=== PATIENT | male | born 1960 | race Caucasian/White ===

== ENCOUNTER 2018-03-07 09:35 | Day surgery (SDC) | payer OTHER, SELFPAY ==
[2018-02-21 12:46] VITALS: BMI 32.5
[2018-03-07] VITALS (9 sets, daily range): BP systolic 106–152; BP diastolic 72–105; PULSE 16–64; RESP 14–16; TEMP 36.4–36.6; O2SAT 96–100; BMI 23.0
--- NOTE | 2018-03-07 10:45 | GASB_PTH ---
PATIENT: TIMOTHY PANDA LOC: [facility] U#:[id number] AGE/SX: 58/M ROOM: RE03/07/[address]: Dr. Sarath Davies MD : 1960 BED: DIS: 03/07/2018 SPEC #: [id number] RECD: 03/07/18 11:42 STATUS: DONNA SKY #: [id number] RAYMOND: 03/07/18 10:[address]: Sarath Davies DEPT: SURGICAL PATHOLOGY RECD BY: Mika Medina ENTERED: 03/07/18 12:05 SP TYPE: Gastric Bx OTHR DR: Dr. Tani Hernandez DO Tissues: A - Gastric mucous membrane B - Esophageal mucous membrane Procedures: Special Stain Group I Surgery Specimen Level IV GMS Stain (control) HEADER OPERATION: EGD (MOD) PRE-OP DIAGNOSIS: Intractable GERD TISSUE SUBMITTED: A - Biopsy gastric antrum, H. pylori and path, B - Biopsy distal esophagus MICROSCOPIC DIAGNOSIS A. Gastric antrum, biopsy: Mild gastritis. See microscopic description and comment. B. Distal esophagus, biopsy: Fragments of squamous mucosa with extensive ulceration, associated acute inflammation, fibrinopurulent exudation and superficial colonization with organisms consistent with bacteria. Special stain for fungi is negative for organisms; matched control is appropriate. SJ:rg 03/08/18 COMMENT A. The results of immunohistochemistry for Helicobacter pylori will be reported separately ([id number]). MICROSCOPIC DESCRIPTION Slides are reviewed. A. The specimen shows fragments of gastric mucosa with chronic inflammatory cell infiltrates in the lamina propria consisting of lymphocytes and plasma cells, consistent with mild chronic gastritis. GROSS DESCRIPTION A. Received in fixative is one container labeled with the patient's name and designated biopsy gastric antrum. The specimen consists of one irregular fragment of light hui soft tissue that measures 0.7 x 0.3 x 0.1 cm. The specimen is totally submitted in one cassette. B - Received in fixative is one container labeled with the patient's name and designated biopsy distal esophagus. The specimen consists of multiple irregular fragments of light hui soft tissue that in aggregate measure 1 x 0.7 x 0.1 cm. The specimen is totally submitted in one cassette. / RAHUL:geovani 03/07/18 TC: CPT: 24423 x2, 59722
--- NOTE | 2018-03-07 10:45 | IMM_PTH ---
PATIENT: TIMOTHY PANDA LOC: [facility] U#:[id number] AGE/SX: 58/M ROOM: RE03/07/[address]: Dr. Sarath Davies MD : 1960 BED: DIS: 03/07/2018 SPEC #: [id number] RECD: 03/07/18 13:08 STATUS: DONNA REVenkat #: [id number] RAYMOND: 03/07/18 10:[address]: Sarath Davies DEPT: IMMUNOHISTOCHEMISTRY RECD BY: Meagan Zurita ENTERED: 03/07/18 13:09 SP TYPE: IMMUNO OTHR DR: Dr. Tani Hernandez DO Tissues: A - Stomach, NOS Procedures: H Pylori (initial) PHYSICIAN & INSTITUTION [place] [address] SPECIMEN INFORMATION: Tissue Source: A - Gastric antrum Clinical Info: GERD Specimen Number: [id number] CPT code: 98331 METHODOLOGY: Deparaffinized sections of prefer/formalin-fixed tissue or PAP/DQ stained slides are incubated with monoclonal/polyclonal antibodies/oligonucleotide probes. Localization is made via biotin free immunoperoxidase method. Appropriate controls are performed and reacted as expected. Results on target cell population are indicated in the following table: RESULTS: ANTIBODY / CLONE RESULT Block A H Pylori (polyclonal) negative These tests were developed and their performance characteristics determined by [facility]. They may not have been cleared or approved by the U.S. Food and Drug Administration. The FDA has determined that such clearance or approval is not necessary. INTERPRETATION: A. Gastric antrum, biopsy: Negative for Helicobacter pylori organisms. SJ:geovani 03/08/18
--- NOTE | 2018-03-07 11:26 | OP.ENDO_ITS ---
Patient Name: Siddharth Alonso Procedure Date: 03/07/2018 11:05 AM Date of : 1960 Age: 58 Procedure: Upper GI endoscopy Indications: Suspected gastro-esophageal reflux disease Providers: Sarath Davies MD Referring MD: Sarath Davies MD Medicines: Midazolam 4.5 mg IV, Meperidine 75 mg IV Complications: No immediate complications. Procedure: Pre-Anesthesia Assessment: - Prior to the procedure, a History and Physical was performed, and patient medications and allergies were reviewed. The patient's tolerance of previous anesthesia was also reviewed. The risks and benefits of the procedure and the sedation options and risks were discussed with the patient. All questions were answered, and informed consent was obtained. Prior Anticoagulants: The patient has taken no previous anticoagulant or antiplatelet agents. ASA Grade Assessment: II - A patient with mild systemic disease. After reviewing the risks and benefits, the patient was deemed in satisfactory condition to undergo the procedure. After obtaining informed consent, the endoscope was passed under direct vision. Throughout the procedure, the patient's blood pressure, pulse, and oxygen saturations were monitored continuously. The gastroscope was introduced through the mouth, and advanced to the second part of duodenum. The upper GI endoscopy was accomplished without difficulty. The patient tolerated the procedure well. Moderate Sedation: Moderate (conscious) sedation was personally administered by the endoscopist. The following parameters were monitored: oxygen saturation, heart rate, blood pressure, and response to care. Total physician intraservice time was 15 minutes. Scope In: 11:15:11 AM Scope Out: 11:21:16 AM Total Procedure Duration Time 0 hours 6 minutes 5 seconds Findings: LA Grade B (one or more mucosal breaks greater than 5 mm, not extending between the tops of two mucosal folds) esophagitis with no bleeding was found 39 to 40 cm from the incisors. Biopsies were taken with a cold forceps for histology. A small hiatal hernia was present. Diffuse mildly erythematous mucosa without bleeding was found in the gastric antrum. Biopsies were taken with a cold forceps for histology. The examined duodenum was normal. Impression: - LA Grade B reflux esophagitis. Biopsied. - Small hiatal hernia. - Erythematous mucosa in the antrum. Biopsied. - Normal examined duodenum. Recommendation: - Discharge patient to home. - Resume previous diet. - Continue present medications. - Use Prilosec (omeprazole) 40 mg PO daily. - Telephone my office for pathology results in 1 week. Procedure Code(s): --- Professional --- 27352, Esophagogastroduodenoscopy, flexible, transoral; with biopsy, single or multiple 72024, 59, Moderate sedation services provided by the same physician or other qualified health gericare aide teacher performing the diagnostic or therapeutic service that the sedation supports, requiring the presence of an independent trained observer to assist in the monitoring of the patient's level of consciousness and physiological status; initial 15 minutes of intraservice time, patient age 5 years or older Diagnosis Code(s): --- Professional --- K21.0, Gastro-esophageal reflux disease with esophagitis K44.9, Diaphragmatic hernia without obstruction or gangrene K31.89, Other diseases of stomach and duodenum CPT copyright 2017 [employer]. All rights reserved. The codes documented in this report are preliminary and upon vc++ developer review may be revised to meet current compliance requirements. Sarath Davies MD 03/07/2018 11:26:14 AM This report has been signed electronically. Number of Addenda: 0 Note Initiated On: 03/07/2018 11:05 AM
== END 2018-03-07 12:15 | disposition home or self-care (01) ==
LOC: EN 09:46 → AC 09:48
PROVIDERS: Family Provider Family Medicine; PCP Family Medicine; Referring Provider Surgery; Visit Provider Surgery
PROC: (CPT 43239; principal; 2018-03-07 10:40)
DX: K21.0 Gastro-esophageal reflux disease with esophagitis (principal); K31.89 Other diseases of stomach and duodenum; K44.9 Diaphragmatic hernia without obstruction or gangrene
CPT/HCPCS: 43239; 88305; 88312; 88342; 99152; J7120

== ENCOUNTER 2018-07-04 07:21 | Day surgery (SDC) | payer OTHER, SELFPAY ==
[2018-03-07 10:06] VITALS: BMI 23.0
--- NOTE | 2018-07-04 06:04 | PCM.HP.STD ---
Problem List (1) GERD (gastroesophageal reflux disease) Status: Acute Qualifiers: History of Present Illness Date of Admission: 07/04/18 The patient is a 58 year old M who I saw in the office on May 29, 2018. At that point he had surgical follow-up for a esophagogastroduodenoscopy which which demonstrated severe reflux esophagitis. He had GERD symptoms for multiple years. He is to be on omeprazole 40 mg daily for 3 months. Prior to ceasing the medication I recommended a repeat upper endoscopy because of the degree of ulceration that he had previously. Wanted to proceed with careful inspection of the EG junction for findings of reflux or Pandya's or Schatzki's ring. Then hopefully would be able to convert to an H2 pamela. I have also suggested consideration for esophageal manometry and possible surgical reflux procedure. The patient states that he has been on his medication but has breakthrough symptoms if he does not take it. Spicy foods aggravate the problem. Most recent colonoscopy was March 2014 and he had tubular adenoma. He had had previous prolonged sedation with the IV sedation uterus laparoscope so monitored anesthesia care will be utilized. He does get motion sickness so I thought that possibly a good surgical procedure for him might be a Toupet procedure rather than a 360 degree wrap Past Medical History Past Medical History (Chronic Problems): Chronic Problems (Last Updated 05/29/18 @ 15:05 by Anju Moy) Hyperlipidemia (Chronic) Medical History: Medical History (Last Updated 05/29/18 @ 15:05 by Anju Moy) GERD (gastroesophageal reflux disease) (Acute) K21.9 Pneumonia (Acute) J18.9 Hypertension (Acute) I10 Acute respiratory failure (Acute) J96.00 Hyperlipidemia (Chronic) E78.5 Ventricular bigeminy (Acute) I49.9 Acute electrocardiogram changes (Acute) R94.31 Shock (Acute) R57.9 Allergies codeine Adverse Reaction (Verified 06/22/18 14:42) Vomiting epinephrine Adverse Reaction (Verified 06/22/18 14:42) Other ekg changes & hypo/hypertension during surgery Home Medications: Ambulatory Orders Medication Instructions Recorded Atenolol [Tenormin (beta pamela)] 50 mg PO QHS 03/18/14 Omeprazole 40 mg PO DAILY #90 gloria. 03/07/18 Surgical History: Surgical History (Last Updated 05/29/18 @ 15:05 by Anju Moy) History of esophagogastroduodenoscopy (EGD) Z98.890 History of nasal septoplasty Z98.890 Surgical History: - - History of a colonoscopy and history of prior nasal turbinate surgery. Psychiatric History: No pertinent psych hx Smoking Status: Never smoker - *Family History Maternal Family History: Family History (Last Reviewed 05/29/18 @ 15:05 by Anju Moy) Mother Hypertension Cancer Father Cancer History Items: - Review of Systems Constitutional: Denies: Anorexia HEENT: Reports: Dysphasia Cardiovascular: Denies: Chest Pain Respiratory: Denies: Cough Gastrointestinal: Denies: Abdominal Pain Endocrine: Denies: Change in Body Habitus VTE Information - Inpt Only VTE Present on Admission: No - Physical Exam General: Alert, Oriented x3, Cooperative, No apparent distress HEENT: Atraumatic Oral: Moist Mucosa Lungs: Clear to auscultation Cardiovascular: Regular rate, Regular Rhythm Abdomen: Bowel Sounds Present, Soft, Non Tender Extremities: No clubbing Psych/Mental Status: Normal Affect Body Mass Index (BMI) 23.0 Assessment/Plan All Active Problems (Last Updated 05/29/18 @ 15:05 by Anju Moy) GERD (gastroesophageal reflux disease) (Acute) Pneumonia (Acute) Hypertension (Acute) Acute respiratory failure (Acute) Ventricular bigeminy (Acute) Acute electrocardiogram changes (Acute) Shock (Acute) Esophagogastroduodenoscopy with very careful inspection for reflux or Pandya's or Schatzki ring. Colonoscopy with possible biopsy or polypectomy as indicated. The patient is aware of technique, benefits, risks and alternatives. He has had an opportunity to ask and have questions answered. We will proceed as noted. Sarath Davies M.D., F.A.C.S.
[2018-07-04 07:48] VITALS: BP 132/76; PULSE 70; RESP 16; TEMP 36.8; O2SAT 100; BMI 23.5
--- NOTE | 2018-07-04 08:30 | IMM_PTH ---
PATIENT: TIMOTHY PANDA LOC: [facility] U#:[id number] AGE/SX: 58/M ROOM: RE07/04/[address]: Dr. Sarath Davies MD : 1960 BED: DIS: 07/04/2018 SPEC #: [id number] RECD: 07/04/18 11:48 STATUS: DONNA SKY #: [id number] RAYMOND: 07/04/18 08:[address]: Sarath Davies DEPT: IMMUNOHISTOCHEMISTRY RECD BY: Meagan Zurita ENTERED: 07/04/18 11:48 SP TYPE: IMMUNO OTHR DR: Dr. Tani Hernandez, Tissues: A - Stomach, NOS Procedures: H Pylori (initial) PHYSICIAN & INSTITUTION [place] [address] SPECIMEN INFORMATION: Tissue Source: A - Antral biopsy Clinical Info: GERD, history of polyps Specimen Number: [id number] CPT code: 37372 METHODOLOGY: Deparaffinized sections of prefer/formalin-fixed tissue or PAP/DQ stained slides are incubated with monoclonal/polyclonal antibodies/oligonucleotide probes. Localization is made via biotin free immunoperoxidase method. Appropriate controls are performed and reacted as expected. Results on target cell population are indicated in the following table: RESULTS: ANTIBODY / CLONE RESULT Block A H Pylori (polyclonal) negative These tests were developed and their performance characteristics determined by [facility]. They may not have been cleared or approved by the U.S. Food and Drug Administration. The FDA has determined that such clearance or approval is not necessary. INTERPRETATION: A. Antral biopsy: Negative for Helicobacter pylori organisms. AM:geovani 07/06/18
--- NOTE | 2018-07-04 08:30 | EGD_PTH ---
PATIENT: TIMOTHY PANDA LOC: [facility] U#:[id number] AGE/SX: 58/M ROOM: RE07/04/[address]: Dr. Sarath Davies MD : 1960 BED: DIS: 07/04/2018 SPEC #: [id number] RECD: 07/04/18 11:04 STATUS: DONNA SKY #: [id number] RAYMOND: 07/04/18 08:[address]: Sarath Davies DEPT: SURGICAL PATHOLOGY RECD BY: Anthony Song ENTERED: 07/04/18 11:35 SP TYPE: EGD BIOPSY OTHR DR: Dr. Tani Hernandez DO Tissues: A - Gastric mucous membrane B - Gastric mucous membrane C - Transverse colon Procedures: Special Stain Group II Surgery Specimen Level IV Alcian Blue/PAS (control) HEADER OPERATION: Colonoscopy, EGD ([employer]) PRE-OP DIAGNOSIS: GERD, history of polyps TISSUE SUBMITTED: A - Antral biopsy for H. pylori and pathology, B - GE junction/distal esophageal biopsies, C - Mid transverse polyps MICROSCOPIC DIAGNOSIS A. Gastric antrum, biopsy: Mild chronic gastritis. See comment. B. Gastroesophageal junction, biopsy: Mild chronic inflammation. No evidence of intestinal metaplasia. Focal changes of reflux. See comment. C. Mid transverse colon polyps, biopsy: Fragments of tubular adenoma. AM:geovani 07/05/18 COMMENT A. The results of immunohistochemistry for Helicobacter pylori will be reported separately ([id number]). B. Alcian blue/PAS stain with matched control supports the above diagnosis. MICROSCOPIC DESCRIPTION Slides are reviewed. GROSS DESCRIPTION A - Received in fixative is one container labeled with the patient's name and designated antral biopsy. The specimen consists of one irregular fragment of light hui soft tissue that measures 0.5 x 0.3 x 0.1 cm. The specimen is totally submitted in one cassette. B - Received in fixative is one container labeled with the patient's name and designated GE junction/ distal esophageal biopsy. The specimen consists of multiple irregular fragments of light hui soft tissue that in aggregate measure 2.5 x 0.5 x 0.1 cm. The specimen is totally submitted in one cassette. C - Received in fixative is one container labeled with the patient's name and designated mid transverse polyps. The specimen consists of a piece of polyp measuring 0.7 x 0.5 x 0.3 cm. Also present in the container are multiple fragments of hui soft tissue measuring in aggregate 0.5 x 0.5 x 0.1 cm. The specimen is totally submitted in one cassette. / RAHUL:geovani 07/04/18 TC:3 CPT: 19940 x3, 59375
[2018-07-04 09:10] VITALS: BP 101/66; BP 132/76; PULSE 60; RESP 15; TEMP 36.2; O2SAT 100
--- NOTE | 2018-07-04 09:11 | OP.ENDO_ITS ---
07/04/2018 Tani Hernandez [address] [place] [address] Re : Upper GI endoscopy procedure for Siddharth Alonso Dear Dr. Hernandez This procedure was performed on Wednesday, July 04, 2018. 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 Biopsied. - Small hiatal hernia. - Z-line variable, 36 cm from the incisors. - Normal stomach. Biopsied. - Normal examined duodenum. Recommendations : - Discharge patient to home. - Resume previous diet. - Continue present medications. - Telephone my office for pathology results in 1 week. Consider manometry and surgical treatment for reflux My findings are described in the full procedure note, which is enclosed. If I can be of further assistance, please feel free to contact me at Doctor phone number(s): Work: . Sincerely, Sarath Davies MD 07/04/2018 9:11:26 AM This report has been signed electronically.
[2018-07-04 09:15] VITALS: BP 105/62; BP 132/76; PULSE 61; RESP 16; O2SAT 100
--- NOTE | 2018-07-04 09:16 | OP.ENDO_ITS ---
07/04/2018 Tani Hernandez [address] [place] [address] Re : Colonoscopy procedure for Siddharth Celeste Dear Dr. Hernandez This procedure was performed on Wednesday, July 04, 2018. My impressions and recommendations are as follows: Impressions : - Non-thrombosed external hemorrhoids, non-thrombosed internal hemorrhoids and internal hemorrhoids that prolapse with straining, but spontaneously regress to the resting position (Grade II) found on digital rectal exam. - One 10 mm polyp in the mid transverse colon, removed using injection-lift and a hot snare. Resected and retrieved. - One 4 mm polyp in the mid transverse colon, removed with a cold biopsy forceps. Resected and retrieved. - Diverticulosis in the sigmoid colon. Recommendations : - Discharge patient to home. - Resume previous diet. - Continue present medications. - Telephone my office for pathology results in 1 week. - Repeat colonoscopy in 5 years for surveillance. My findings are described in the full procedure note, which is enclosed. If I can be of further assistance, please feel free to contact me at Doctor phone number(s): Work: . Sincerely, Sarath Davies MD 07/04/2018 9:15:38 AM This report has been signed electronically.
[2018-07-04 09:20] VITALS: BP 124/75; BP 132/76; PULSE 62; RESP 16; O2SAT 100
[2018-07-04 09:25] VITALS: BP 117/69; BP 132/76; PULSE 62; RESP 16; TEMP 36.9; O2SAT 97
[2018-07-04 09:40] VITALS: BP 132/76
== END 2018-07-04 09:41 | disposition home or self-care (01) ==
LOC: EN 07:22 → AC 07:25
PROVIDERS: Family Provider Family Medicine; PCP Family Medicine; Referring Provider Surgery; Visit Provider Surgery
PROC: 0DJD8ZZ Inspection of Lower Intestinal Tract, Via Natural or Artificial Opening Endoscopic (ICD-10-PCS; CPT 45378; principal; 2018-07-04 08:25)
DX: K21.0 Gastro-esophageal reflux disease with esophagitis (principal); K29.50 Unspecified chronic gastritis without bleeding; D12.3 Benign neoplasm of transverse colon; K22.8 Other specified diseases of esophagus; K44.9 Diaphragmatic hernia without obstruction or gangrene; K64.1 Second degree hemorrhoids; K64.4 Residual hemorrhoidal skin tags; K57.30 Diverticulosis of large intestine without perforation or abscess without bleeding; I10 Essential (primary) hypertension; E78.5 Hyperlipidemia, unspecified; I25.2 Old myocardial infarction; Z79.899 Other long term (current) drug therapy; Z86.010 Personal history of colon polyps
CPT/HCPCS: 43239; 45380; 45381; 45385; 88305; 88313; 88342; J7120

== ENCOUNTER 2021-03-13 17:22 | Outpatient (CLI) | payer OTHER, SELFPAY ==
[2021-03-13] MEDS: Acetaminophen 325 MG Tablet 650 MG PO (17:28)
[2021-03-13 17:31] VITALS: BP 129/72; PULSE 72; RESP 18; TEMP 38.8; O2SAT 99; BMI 23.1
[2021-03-13] MEDS: 0.9% Saline Lock 10 ML Syringe IV (17:37)
[2021-03-13 18:14] VITALS: BP 109/56; PULSE 63; RESP 16; TEMP 37.3; O2SAT 94
[2021-03-13 19:12] VITALS: BP 112/72; PULSE 64; RESP 18; TEMP 37.7; O2SAT 96
== END 2021-03-13 19:22 | disposition home or self-care (01) ==
LOC: MS3OUT 17:22 → MS3 17:23
PROVIDERS: PCP Student in an Organized Health Care Education/Training Program; Referring Provider Nurse Practitioner Adult Health; Visit Provider Nurse Practitioner Adult Health
DX: U07.1 COVID-19 (principal)
CPT/HCPCS: J7050; M0245; Q0245; A4216

== ENCOUNTER 2022-08-21 14:55 | Emergency (ER) | payer OTHER, SELFPAY ==
[2022-08-21 14:56] VITALS: BP 161/79; PULSE 72; RESP 18; TEMP 36.4; O2SAT 98; BMI 23.6
--- NOTE | 2022-08-21 15:11 | EX.ED.DYSGE1 ---
HPI History of Present Illness Chief Complaint: Edema Informant: patient and spouse/S.O. Onset/Context/Timing Onset: Days Context: Gradual Onset Narrative Narrative: Patient presents secondary to right leg pain. He states he had a charley horse-like sensation in his right calf and behind his right knee for the last 4 days. He started noticing some slight swelling. Patient denies history of DVT or PE. He did have recent skin surgery on his scalp. He had no fever or chills. He denies chest pain or shortness of breath. [facility] Medical History (Updated 08/21/22 @ 16:[address] Krystle Dutta MD) Acute electrocardiogram changes Acute respiratory failure GERD (gastroesophageal reflux disease) Hyperlipidemia Hypertension Pneumonia Shock Ventricular bigeminy Home Medications atenolol 50 mg tablet 50 mg PO QHS 03/18/14 [History Last Taken 07/04/18 07:00] omeprazole 40 mg capsule,delayed release 20 mg PO DAILY 09/21/19 [History Last Taken Unknown] Allergy/AdvReac Type Severity Reaction Status Date / Time codeine AdvReac Vomiting Verified 03/12/21 10:44 epinephrine AdvReac Other Verified 03/12/21 10:44 Family History Mother Hypertension Cancer lung Father Cancer mantle cell lymphoma Surgical History History of esophagogastroduodenoscopy (EGD) History of nasal septoplasty Social History Smoking Status: Never smoker alcohol intake: never substance use type: does not use ROS ROS ED Constitutional Constitutional ED: Denies chills or fever(s) Eyes Eyes: Denies change in vision or discharge from eye(s) ENT ENT ED: Denies discharge from eye(s), rhinorrhea or sore throat Cardiovascular Cardiovascular: Denies chest pain or palpitations Respiratory/Chest Respiratory/Chest: Denies cough or dyspnea Gastrointestinal Gastrointestinal: Denies abdominal pain, nausea or vomiting Genitourinary Genitourinary ED: Denies dysuria Musculoskeletal Musculoskeletal: Reports extremity pain; Denies back pain Integumentary Reports other Details: Postop scalp lesion ; Denies Abrasions or rash Neurologic Neurologic: Denies headache(s) or weakness Psychiatric Psychiatric: Denies anxiety or depression Allergic/Immunologic Allergic/Immunologic ED: Denies lip swelling or urticaria EXAM Physical Exam Const Vital Signs: 08/21/22 14:56 08/21/22 15:16 08/21/22 14:56 Temperature 97.6 F L 97.6 F L Temperature Source Temporal Temporal Pulse Rate 72 72 Respiratory Rate 18 18 Respiratory Effort Normal Non-Labored Respiratory Pattern Normal Blood Pressure 161/79 H 161/79 H Blood Pressure Mean 106 106 Pulse Ox 98 98 Oxygen Delivery Method Room Air Room Air Positive well nourished and well developed General Appearance ED: well developed HEENT Reports moist mucous membranes HEENT Narrative: Parietal scalp incision with cong intact. No surrounding erythema or drainage. No sign of infection at this time. Eyes EOMs intact bilaterally Chest Wall inspection of chest normal and palpation of chest normal Resp normal respiratory effort and clear to auscultation bilaterally Cardio regular rate and regular rhythm GI normal to inspection, nondistended, normoactive bowel sounds Extremity Extremity Narrative: Minimal edema noted to the right lower extremity, however right calf is tense when compared to the left. Strong distal pulses. No palpable cords. No overlying skin changes. Strong distal pulses. Full range of motion at all joints. Neuro oriented x3 and no sensory deficits noted Motor Exam: strength 5/5 throughout Psych mental status grossly normal MDM MDM MDM Narrative Medical decision making narrative: I did explain to the patient I do not have venous ultrasound available at this time as he presents on a Tuesday afternoon. We agreed to test the D-dimer which did return elevated at 2.93. In light of this patient be given an injection of Lovenox. He will return tomorrow for a ultrasound of his leg to evaluate for DVT. Patient and are comfortable with this plan. Lab Data Labs: Laboratory Results - last 24 hr 08/21/22 15:30 D-Dimer Quant (PE/DVT) 2.93 H* Discharge Plan Triage Chief Complaint: Edema ED Provider: Krystle Dutta Dx/Rx/DC Orders Clinical Impression: Leg edema, right Instructions: ED Peripheral Edema, Unilateral Prescriptions: No Action omeprazole 40 mg capsule,delayed release(DR/EC) 20 mg PO DAILY atenolol 50 MG tablet 50 mg PO QHS Other Ambulatory Orders: Venous Duplex US, Unilateral (Stat) Facility: [facility] - Location: [facility] Ordered By: Dr. Krystle Dutta Primary Care Provider: Jarrod Sifuentes Referrals: Jarrod Sifuentes DO [Primary Care Provider] - 3-5 Days if not improving Disposition Disposition: Home, Self Care
[2022-08-21 16:05] LABS: D-Dimer Quantitative (DVT/PE) 2.93 FEU/ug/m (0.27-0.49)
[2022-08-21] MEDS: Enoxaparin 80 MG/0.8 ML Syringe SC (16:17)
== END 2022-08-21 16:28 | disposition home or self-care (01) ==
PROVIDERS: Emergency Provider Emergency Medicine; PCP Student in an Organized Health Care Education/Training Program; Visit Provider Emergency Medicine
DX: R60.0 Localized edema (principal); E78.5 Hyperlipidemia, unspecified; I10 Essential (primary) hypertension; K21.9 Gastro-esophageal reflux disease without esophagitis
CPT/HCPCS: 85379; 96372; 99282

== ENCOUNTER 2022-08-22 12:03 | Emergency (ER) | payer OTHER, SELFPAY ==
[2022-08-22 12:04] VITALS: BP 136/73; PULSE 59; RESP 16; TEMP 36.1; O2SAT 99; BMI 23.4
--- NOTE | 2022-08-22 12:19 | EDS_ITS ---
HPI History of Present Illness Chief Complaint: Lower Extremity Injury Informant: patient Narrative Narrative: Patient with about 6 days of spontaneous onset pain in the right popliteal fossa down into the calf and some edema distal to that. Denies any PE symptoms. He was seen here yesterday for this but presented when venous duplex ultrasound was not available so we had that as an outpatient this morning, and was sent here to the emergency department around noon due to the ultrasound being positive for DVT basically from the popliteal vein down. He denies any new symptoms or changes since yesterday. PFSH [facility] Medical History (Updated 08/22/22 @ 12:[address] Naveed Mclain MD) Acute electrocardiogram changes Acute respiratory failure GERD (gastroesophageal reflux disease) Hyperlipidemia Hypertension Melanoma Pneumonia Shock Ventricular bigeminy Home Medications atenolol 50 mg tablet 50 mg PO QHS 03/18/14 [History Last Taken 07/04/18 07:00] omeprazole 40 mg capsule,delayed release 20 mg PO DAILY 09/21/19 [History Last Taken Unknown] apixaban 5 mg (74 tabs) tablets in a dose pack (Eliquis DVT-PE Treat 30D Start) 5 mg PO BID #74 tabs 08/22/22 [Rx Last Taken Unknown] Allergy/AdvReac Type Severity Reaction Status Date / Time codeine AdvReac Vomiting Verified 03/12/21 10:44 epinephrine AdvReac Other Verified 03/12/21 10:44 Family History Mother Hypertension Cancer lung Father Cancer mantle cell lymphoma Surgical History (Updated 08/22/22 @ 12:[address] Naveed Mclain MD) History of esophagogastroduodenoscopy (EGD) History of melanoma excision History of nasal septoplasty Social History Smoking Status: Never smoker alcohol intake: never substance use type: does not use ROS ROS ED Constitutional Constitutional ED: Denies chills or fever(s) Cardiovascular Cardiovascular: Reports leg edema; Denies chest pain, palpitations, racing heartbeat or syncope Respiratory/Chest Respiratory/Chest: Denies dyspnea or dyspnea on exertion Musculoskeletal Musculoskeletal: Reports extremity pain; Denies neck pain Integumentary Denies Abrasions, rash or wounds Neurologic Neurologic: Denies paresthesias or weakness EXAM Physical Exam Const Vital Signs: 08/22/22 12:04 Temperature 97 F L Temperature Source Temporal Pulse Rate 59 L Respiratory Rate 16 Blood Pressure 136/73 H Blood Pressure Mean 94 Pulse Ox 99 Oxygen Delivery Method Room Air Positive well nourished and well developed General Appearance ED: well developed and NAD Neck full ROM and supple Back/Spine normal ROM and normal to inspection Extremity Extremity Narrative: Mild edema pitting right lower extremity, mild calf tenderness, no palpable cords or skin color abnormalities, or abnormal pulse. Neuro oriented x3, no focal motor deficits and no sensory deficits noted Sensorium / Orientation: alert Psych mental status grossly normal and thought process normal Skin no wounds Rashes: no rashes MDM MDM MDM Narrative Medical decision making narrative: Patient had 1 mg/kg or little more of Lovenox yesterday, I reviewed those records to see the dose. Since it is noon I am given him a 24-hour dose of Lovenox 1.5 mg/kg, and prescribed him Eliquis that then he can start in the morning tomorrow. Close outpatient follow-up with his doctor. He has had no immobilization or long travel recently. He did recently have a melanoma removed from the top of his scalp, but it was an outpatient surgery. He said it was confirmed that it was melanoma and he does not need chemotherapy and has not been diagnosed with any metastatic disease. That really is his risk factor for developing thromboembolic disease which I discussed with him. Discharge Plan Triage Chief Complaint: Lower Extremity Injury ED Provider: Naveed Mclain Dx/Rx/DC Orders Clinical Impression: Deep vein thrombosis (DVT) of popliteal vein of right lower extremity Instructions: DVT Dc Prescriptions: New Eliquis DVT-PE Treat 30D Start 5 mg (74 tabs) tablets,dose pack 5 mg PO BID Qty: 74 0RF Rx Instructions: use as directed No Action omeprazole 40 mg capsule,delayed release(DR/EC) 20 mg PO DAILY atenolol 50 MG tablet 50 mg PO QHS Primary Care Provider: Jarrod Sifuentes Referrals: Jarrod Sifuentes DO [Primary Care Provider] - 1-2 Weeks Activity Restrictions/Additional Instructions: The injection of blood thinner you received in the emergency department will last approximately 24 hours. Start the prescription blood thinner pills tomorrow morning, 08/23/2022. Disposition Disposition: Home, Self Care
[2022-08-22] MEDS: Enoxaparin 120 MG/0.8 ML Syringe 115 MG SC (12:32)
== END 2022-08-22 12:51 | disposition home or self-care (01) ==
PROVIDERS: Emergency Provider Emergency Medicine; PCP Student in an Organized Health Care Education/Training Program; Visit Provider Emergency Medicine
DX: I82.431 Acute embolism and thrombosis of right popliteal vein (principal); E78.5 Hyperlipidemia, unspecified; I10 Essential (primary) hypertension; K21.9 Gastro-esophageal reflux disease without esophagitis; Z85.820 Personal history of malignant melanoma of skin
CPT/HCPCS: 96372; 99282

== ENCOUNTER → 2022-08-22 | Outpatient (CLI) | payer OTHER, SELFPAY ==
--- NOTE | 2022-08-22 11:27 | VDLE_ITS ---
Reason For Study: Swelling RLE RIGHT LEFT GSV is normal. CFV is compressible, spontaneous, phasic, CFV is compressible, spontaneous, phasic, competent, and demonstrates normal competent and demonstrates normal augmentation. augmentation. FV is compressible, spontaneous, phasic, competent and demonstrates normal augmentation. Rt PopV, Rt T/P Trunk, Rt PTV, Rt PeroV, and Rt SoleusV are DILATED and NON COMPRESSIBLE consistent with acute DVT. Procedure This is a venous duplex using B-mode, color flow and spectral Doppler. Exam performed in department. Patient sent to ED for treatment. A preliminary report was called and/or faxed to ED. VL/Venous Duplex US, Unilateral Interpretation Summary Acute deep vein thrombosis is noted in the right popliteal vein, tibioperoneal trunk vein, posterior tibial vein, peroneal vein, soleus vein. Ordering Physician: Krystle Dutta Referring Physician: Jarrod Sifuentes Performed By: Gisselle Scott RDCS, RVT
== END | disposition home or self-care (01) ==
LOC: CVS 11:27
PROVIDERS: PCP Student in an Organized Health Care Education/Training Program; Visit Provider Emergency Medicine
DX: M79.89 Other specified soft tissue disorders (principal)
CPT/HCPCS: 93971

== ENCOUNTER 2023-07-08 08:59 | Day surgery (SDC) | payer MEDICARE, SELFPAY ==
--- NOTE | 2023-07-08 | GASB_PTH ---
PATIENT: TIMOTHY PANDA LOC: EN U#:[id number] AGE/SX: 63/M ROOM: RE07/08/[address]: Dr. Sarath Davies MD : 1960 BED: DIS: 07/08/2023 SPEC #: [id number] RECD: 07/08/23 13:36 STATUS: DONNA SKY #: [id number] RAYMOND: 07/08/23 00:[address]: Sarath Davies DEPT: SURGICAL PATHOLOGY RECD BY: Jt Dailey ENTERED: 07/08/23 13:36 SP TYPE: Gastric Bx OTHR DR: Dr. Jarrod Sifuentes DO Tissues: A - Gastric mucous membrane B - Gastric mucous membrane C - Stomach, NOS D - Esophageal mucous membrane E - COLON BIOPSY Procedures: Special Stain Group II Surgery Specimen Level IV Alcian Blue/PAS (control) HEADER OPERATION: Colonoscopy with polypectomy, EGD with biopsy PRE-OP DIAGNOSIS: GERD, History of colon polyps, Polyp TISSUE SUBMITTED: A- Antrum biopsy, B- Antral polyp, C- Greater curvature polyp, D- Distal esophagus, E- Colon polyp proximal transverse hot snare MICROSCOPIC DIAGNOSIS A. Gastric antrum, biopsy: Mild chronic gastritis. B. Gastric antral polyp, biopsy: Hyperplastic gastric mucosa. Mild chronic inflammation. C. Greater curvature polyp, biopsy: Fundic gland polyp. D. Distal esophagus, biopsy: Gastroesophageal junctional mucosa with mild chronic inflammation. Focal changes of reflux. No evidence of goblet cell metaplasia. See comment. E. Proximal transverse colon polyp, biopsy: Fragments of tubular adenoma. AM/mr 07/11/23 COMMENT A. The results of immunohistochemistry for Helicobacter pylori will be reported separately ([id number]). D. Alcian blue/PAS stain with matched control supports the above diagnosis. MICROSCOPIC DESCRIPTION Slides are reviewed. GROSS DESCRIPTION A. Received in fixative is one container labeled with the patient's name and designated Antrum biopsy. The specimen consists of one irregular fragment of light hui soft tissue that measures 0.6 x 0.4 x 0.1 cm. The specimen is totally submitted in one cassette. B. Received in fixative is one container labeled with the patient's name and designated Antral polyp. The specimen consists of one irregular fragment of light hui soft tissue that measures 0.3 x 0.3 x 0.1 cm. The specimen is totally submitted in one cassette. C. Received in fixative is one container labeled with the patient's name and designated Greater curvature polyp. The specimen consists of one irregular fragment of light hui soft tissue that measures 0.4 x 0.3 x 0.1 cm. The specimen is totally submitted in one cassette. D. Received in fixative is one container labeled with the patient's name and designated Distal esophagus. The specimen consists of multiple irregular fragments of light hui soft tissue that in aggregate measure 1.2 x 0.4 x 0.1 cm. The specimen is totally submitted in one cassette. E. Received in fixative is one container labeled with the patient's name and designated Colon polyp proximal transverse hot snare. The specimen consists of multiple irregular fragments of light hui soft tissue that in aggregate measure 1.0 x 0.3 x 0.1 cm. The specimen is totally submitted in one cassette. RAHUL/ 07/08/23 TC:3 CPT:43591j6,52803
[2023-07-08 09:15] VITALS: BP 137/82; PULSE 78; RESP 16; TEMP 36.5; O2SAT 100; BMI 23.1
[2023-07-08] MEDS: Lactated Ringers 1,000 ML 15 ML IV (09:16)
--- NOTE | 2023-07-08 09:54 | HP.PCM_ITS ---
History and Physical Date of Admission: 07/08/23 Visit Reasons: Upper Lower/Scope Chief Complaint: upper lower/scope Director Labor Standards Required: No Is patient in pain?: No Allergies codeine Adverse Reaction (Verified 06/10/23 14:30) Vomitingepinephrine Adverse Reaction (Verified 06/10/23 14:30) Other Medications atenolol 50 mg tablet 50 mg PO QHS 03/18/14 [History Confirmed 03/13/21] omeprazole 40 mg capsule,delayed release 20 mg PO DAILY 09/21/19 [History Confirmed 03/13/21] COUNT INCLUDES THE [facility] Medical History Acute electrocardiogram changes Acute respiratory failure GERD (gastroesophageal reflux disease) Hyperlipidemia Hypertension Melanoma Pneumonia Shock Ventricular bigeminy Surgical History History of esophagogastroduodenoscopy (EGD) History of melanoma excision History of nasal septoplasty Family History Mother Hypertension Cancer lungFather Cancer mantle cell lymphoma Social History Smoking Status: Never smoker alcohol intake: never substance use type: does not use HPI HPI HPI: 63-year-old gentleman is referred Dr. Jarrod Sifuentes for surgical consultation regarding reflux disease and a personal history of colon polyps. A written copy my surgical consult and recommendations will return to him. I have most recently seen this patient on September 21, 2019. He presented at that time because of intractable gastroesophageal reflux disease. At that time he remained on omeprazole therapy and routinely additionally took Tums at night. He has had a previous upper scope on July 04, 2018 showing ulceration of the esophagus. He also had a colonoscopy at that time with 2 polyps removed both tubular adenomas. In an attempt at getting him off of omeprazole he was converted to famotidine therapy 20 mg either daily or twice daily as he needed. I recommended to him that we consider an esophagogastroduodenoscopy with repeat biopsy and Gates probe placement. I discussed with him potential need for esophageal manometry and potential for surgical reflux procedure. He was given our postoperative dietary and activity instruction sheets. He did not schedule further follow-up with me. On June 03, 2023 he completed an open access interview. This was stimulated and that his reflux symptoms have returned despite apparently is being back on omeprazole. He is on fish oil therapy and he was asked to hold this. His complaints are of infrequent heartburn and burping. He has been on omeprazole 20 g orally daily for several years now. He claims that it does completely take care of his reflux problems. He has no heartburn. He does not experience the cough that he used to at night. He is satisfied with that result. He does not require additional medications like an acids. August 10, 2022 had a melanoma removed from his scalp at [facility] in [place] 2 weeks later he developed right lower extremity DVT. He has been subsequently seen by Dr. Pollard for that that appears to be cleared. The patient states that Dr. Pollard performed in the office ultrasound inspection suggesting the DVT had resolved. He was also just seen by Dr. Armando battery charger conveyor line to evaluate him for what was felt to be a blood clotting disorder but the battery charger conveyor line dispel that and took the patient off his his Eliquis therapy last week. The patient also makes comment to me that he gets severe motion sickness and gets nauseated and vomits easily. That is why he does not feel that he is a candidate to pursue surgical reflux surgery. He denies any bright red blood per rectum or melena. No abdominal pain. ROS General General: No weight change, appetite, fatigue, colon cancer, breast cancer or weakness HEENT HEENT: No difficulty swallowing, eye injury, eye surgery, swollen glands or hoarseness Endo Endocrine: No thyroid disease, diabetes mellitus, thyroid cancer, Hair loss, heat intolerance or cold intolerance Skin Skin: No rash or changing moles Musc Musculoskeletal: No back problems, arthritis, rheumatoid arthritis, gout or joint pain Cardio Cardiovascular: No murmur, pacemaker, heart disease, atrial fibrillation, high blood pressure, heart attack, heart stent, palpitations, shortness of breat with exertion or chest pain Psych Psychiatric: No depression, anxiety or hearing voices Resp Respiratory: No shortness of breath, No sleep apnea, No cough, No COPD, No asthma, No emphysema and No wheezing Gastro Gastrointestinal: No abdominal pain, No nausea or vomiting, No diarrhea, No constipation, No blood in stool, Yes acid reflux, No hemorrhoids, No ulcers, No gallbladder problem and No black,tarry stools Nic Hematologic: No blood thinners, No blood disorders, No bleeding, No anemia and Yes blood clots Neuro Neurologic: No weakness Exam Const General: cooperative, healthy appearing, comfortable and no acute distress Nutritional Appearance: average body habitus [facility] Head: normal to inspection Eyes General: appearance normal, both eyes and all related structures Neck Neck: normal visual inspection Chest Chest palpation & inspection: normal inspection of the chest Resp Effort & Inspection: normal respiratory effort Auscultation: clear to auscultation bilaterally Cardio Rate: regular rate Rhythm: regular rhythm GI Inspection: normal to inspection Palpation: soft Musc Cervical Spine: normal cervical lordosis Skin General: no rashes or lesions noted Neuro General: patient alert, patient awake and patient oriented x3 Extrem General: no calf tenderness Psych Appearance: grossly normal Assessment and Plan Assessment and Plan (1) GERD (gastroesophageal reflux disease): Status: Acute Qualifiers: Esophagitis bleeding: without hemorrhage Esophagitis presence: with esophagitis Qualified Code(s): K21.00 - Gastro-esophageal reflux disease with esophagitis, without bleeding (2) Personal history of colonic polyps: Status: Acute Plan: 63-year-old gentleman with known persistent reflux symptoms and biopsy-proven reflux esophagitis. He is proton pump inhibitor dependent and has been so for multiple years. In addition he has a personal history of colon polyps most recent upper and lower endoscopy July 2018. His symptoms have escalated. I propose for him a combined esophagogastroduodenoscopy with possible biopsy and colonoscopy with possible biopsy or polypectomy as indicated. He is aware of the technique, benefit, risk and alternatives. Because of the patient's severe motion sickness and frequent nausea and vomiting he would not appear to be a good candidate for surgical reflux procedure. We will not pursue manometry at this time. He has had an opportunity to ask and have questions answered. I appreciate the ongoing option of assisting with his surgical care. We will schedule and proceed at his discretion. Copy: Dr. Jarrod Davies M.D., F.A.C.S. I have examined the patient and the H&P has been reviewed. There are no clinical changes since date of exam. Sarath Davies M.D., F.A.C.S.
--- NOTE | 2023-07-08 10:15 | IMM_PTH ---
PATIENT: TIMOTHY PANDA LOC: EN U#:[id number] AGE/SX: 63/M ROOM: RE07/08/[address]: Dr. Sarath Davies MD : 1960 BED: DIS: 07/08/2023 SPEC #: [id number] RECD: 07/08/23 13:40 STATUS: DONNA REVenkat #: [id number] RAYMOND: 07/08/23 10:[address]: Sarath Davies DEPT: IMMUNOHISTOCHEMISTRY RECD BY: Yoandy Cruz ENTERED: 07/08/23 13:40 SP TYPE: IMMUNO OTHR DR: Dr. Jarrod Sifuentes DO Tissues: A - Stomach, NOS Procedures: H Pylori (initial) PHYSICIAN & INSTITUTION [place] [id number] SPECIMEN INFORMATION: Tissue Source: A. Antrum biopsy Clinical Info: GERD, History of colon polyps Specimen Number: [id number] CPT code: 29040 METHODOLOGY: Deparaffinized sections of prefer/formalin-fixed tissue or PAP/DQ stained slides are incubated with monoclonal/polyclonal antibodies/oligonucleotide probes. Localization is made via biotin free immunoperoxidase method. Appropriate controls are performed and reacted as expected. Results on target cell population are indicated in the following table: RESULTS: ANTIBODY / CLONE RESULT Block A H Pylori (polyclonal) negative These tests were developed and their performance characteristics determined by [facility]. They may not have been cleared or approved by the U.S. Food and Drug Administration. The FDA has determined that such clearance or approval is not necessary. The above immunohistochemical/dualISH markers are ordered and reviewed by the Pathologist. INTERPRETATION: A. Antrum, biopsy: Negative for Helicobacter pylori organisms. DRAGAN/ 07/11/23
[2023-07-08 12:12] VITALS: BP 137/82; BP 90/44; PULSE 67; RESP 16; TEMP 36.3; O2SAT 100
--- NOTE | 2023-07-08 12:13 | OP.EGD_ITS ---
Patient Name: Siddharth Alonso Procedure Date: 07/08/2023 11:32 AM Date of : 1960 Age: 63 Procedure: Upper GI endoscopy Indications: Esophageal reflux Providers: Sarath Davies MD Medicines: See the Anesthesia note for documentation of the administered medications Complications: No immediate complications. Procedure: Pre-Anesthesia Assessment: - Prior to the procedure, a History and Physical was performed, and patient medications and allergies were reviewed. The patient's tolerance of previous anesthesia was also reviewed. The risks and benefits of the procedure and the sedation options and risks were discussed with the patient. All questions were answered, and informed consent was obtained. Prior Anticoagulants: The patient has taken no anticoagulant or antiplatelet agents. ASA Grade Assessment: II - A patient with mild systemic disease. After reviewing the risks and benefits, the patient was deemed in satisfactory condition to undergo the procedure. After obtaining informed consent, the endoscope was passed under direct vision. Throughout the procedure, the patient's blood pressure, pulse, and oxygen saturations were monitored continuously. The pediatric colonoscope was introduced through the mouth, and advanced to the second part of duodenum. The upper GI endoscopy was accomplished without difficulty. The patient tolerated the procedure well. Scope In: 11:41:51 AM Scope Out: 11:51:29 AM Total Procedure Duration Time 0 hours 9 minutes 38 seconds Findings: LA Grade A (one or more mucosal breaks less than 5 mm, not extending between tops of 2 mucosal folds) esophagitis with no bleeding was found 39 cm from the incisors. Biopsies were taken with a cold forceps for histology. A 2 cm hiatal hernia was present. A few sessile polyps with no bleeding and no stigmata of recent bleeding were found on the greater curvature of the stomach. The polyp was removed with a cold biopsy forceps. Resection and retrieval were complete. A single sessile polyp with no bleeding and no stigmata of recent bleeding was found in the gastric antrum. The polyp was removed with a cold biopsy forceps. Resection and retrieval were complete. Diffuse mildly erythematous mucosa without bleeding was found in the gastric antrum. Biopsies were taken with a cold forceps for histology. The examined duodenum was normal. Impression: - LA Grade A reflux esophagitis with no bleeding. Rule out Pandya's esophagus. Biopsied. - 2 cm hiatal hernia. - A few gastric polyps. Resected and retrieved. - A single gastric polyp. Resected and retrieved. - Erythematous mucosa in the antrum. Biopsied. - Normal examined duodenum. Recommendation: - Discharge patient to home. - Resume previous diet. - Continue present medications. - Telephone my office for pathology results in 1 week. At this time I anticipate ongoing medical treatment. Procedure Code(s): --- Professional --- 11872, Esophagogastroduodenoscopy, flexible, transoral; with biopsy, single or multiple Diagnosis Code(s): --- Professional --- K21.00, Gastro-esophageal reflux disease with esophagitis, without bleeding K44.9, Diaphragmatic hernia without obstruction or gangrene K31.7, Polyp of stomach and duodenum K31.89, Other diseases of stomach and duodenum CPT copyright 2021 [employer]. All rights reserved. The codes documented in this report are preliminary and upon yeast distiller review may be revised to meet current compliance requirements. Sarath Davies MD 07/08/2023 12:13:13 PM This report has been signed electronically. Number of Addenda: 0 Note Initiated On: 07/08/2023 11:32 AM
--- NOTE | 2023-07-08 12:14 | OP.CCLET_ITS ---
07/08/2023 Jarrod Sifuentes Do Re : Upper GI endoscopy procedure for Siddharth Mdeeiros Maria This procedure was performed on Saturday, July 08, 2023. My impressions and recommendations are as follows: Impressions : - LA Grade A reflux esophagitis with no bleeding. Rule out Pandya's esophagus. Biopsied. - 2 cm hiatal hernia. - A few gastric polyps. Resected and retrieved. - A single gastric polyp. Resected and retrieved. - Erythematous mucosa in the antrum. Biopsied. - Normal examined duodenum. Recommendations : - Discharge patient to home. - Resume previous diet. - Continue present medications. - Telephone my office for pathology results in 1 week. At this time I anticipate ongoing medical treatment. My findings are described in the full procedure note, which is enclosed. If I can be of further assistance, please feel free to contact me at Doctor phone number(s): Work: . Sincerely, Sarath Davies MD 07/08/2023 12:13:13 PM This report has been signed electronically.
[2023-07-08 12:15] VITALS: BP 137/82; BP 80/40; PULSE 68; RESP 16; O2SAT 100
--- NOTE | 2023-07-08 12:16 | OP.CCLET_ITS ---
07/08/2023 Jarrod Sifuentes Do Re : Colonoscopy procedure for Siddharth Medeiros Maria This procedure was performed on Saturday, July 08, 2023. My impressions and recommendations are as follows: Impressions : - Non-thrombosed internal hemorrhoids and internal hemorrhoids that prolapse with straining, but spontaneously regress to the resting position (Grade II) found on digital rectal exam. - One 8 mm polyp in the proximal transverse colon, removed with a hot snare. Resected and retrieved. - The examination was otherwise normal. Recommendations : - Discharge patient to home. - Resume previous diet. - Continue present medications. - Repeat colonoscopy in 5 years for surveillance based on pathology results. - Telephone my office for pathology results in 1 week. My findings are described in the full procedure note, which is enclosed. If I can be of further assistance, please feel free to contact me at Doctor phone number(s): Work: . Sincerely, Sarath Davies MD 07/08/2023 12:16:23 PM This report has been signed electronically.
--- NOTE | 2023-07-08 12:16 | OP.COLON_ITS ---
Patient Name: Siddharth Alonso Procedure Date: 07/08/2023 11:51 AM Date of : 1960 Age: 63 Procedure: Colonoscopy Indications: High risk colon cancer surveillance: Personal history of colonic polyps Providers: Sarath Davies MD Medicines: See the Anesthesia note for documentation of the administered medications Patient Profile: Last Colonoscopy: July 2018. Complications: No immediate complications. Procedure: Pre-Anesthesia Assessment: - Prior to the procedure, a History and Physical was performed, and patient medications and allergies were reviewed. The patient's tolerance of previous anesthesia was also reviewed. The risks and benefits of the procedure and the sedation options and risks were discussed with the patient. All questions were answered, and informed consent was obtained. Prior Anticoagulants: The patient has taken no anticoagulant or antiplatelet agents. ASA Grade Assessment: II - A patient with mild systemic disease. After reviewing the risks and benefits, the patient was deemed in satisfactory condition to undergo the procedure. After I obtained informed consent, the scope was passed under direct vision. Throughout the procedure, the patient's blood pressure, pulse, and oxygen saturations were monitored continuously. The pediatric colonoscope was introduced through the anus and advanced to the cecum, identified by appendiceal orifice and ileocecal valve. The colonoscopy was performed without difficulty. The patient tolerated the procedure well. The quality of the bowel preparation was adequate to identify polyps. The ileocecal valve and the appendiceal orifice were photographed. Scope In: 11:52:17 AM Scope Withdrawal Time 0 hours 8 minutes 20 seconds Scope Out: 12:04:47 PM Total Procedure Duration Time 0 hours 12 minutes 30 seconds Findings: The digital rectal exam findings include non-thrombosed internal hemorrhoids and internal hemorrhoids that prolapse with straining, but spontaneously regress to the resting position (Grade II). Pertinent negatives include normal prostate (size, shape, and consistency). An 8 mm polyp was found in the proximal transverse colon. The polyp was sessile. The polyp was removed with a hot snare. Resection and retrieval were complete. The exam was otherwise without abnormality. Impression: - Non-thrombosed internal hemorrhoids and internal hemorrhoids that prolapse with straining, but spontaneously regress to the resting position (Grade II) found on digital rectal exam. - One 8 mm polyp in the proximal transverse colon, removed with a hot snare. Resected and retrieved. - The examination was otherwise normal. Recommendation: - Discharge patient to home. - Resume previous diet. - Continue present medications. - Repeat colonoscopy in 5 years for surveillance based on pathology results. - Telephone my office for pathology results in 1 week. Procedure Code(s): --- Professional --- 72100, Colonoscopy, flexible; with removal of tumor(s), polyp(s), or other lesion(s) by snare technique Diagnosis Code(s): --- Professional --- Z86.010, Personal history of colonic polyps K64.1, Second degree hemorrhoids D12.3, Benign neoplasm of transverse colon (hepatic flexure or splenic flexure) CPT copyright 2021 [employer]. All rights reserved. The codes documented in this report are preliminary and upon revolving field assembler review may be revised to meet current compliance requirements. Sarath Davies MD 07/08/2023 12:16:23 PM This report has been signed electronically. Number of Addenda: 0 Note Initiated On: 07/08/2023 11:51 AM
[2023-07-08 12:20] VITALS: BP 137/82; BP 91/57; PULSE 82; RESP 16; O2SAT 100
[2023-07-08 12:31] VITALS: BP 105/63; BP 137/82; PULSE 80; RESP 16; TEMP 36.2; O2SAT 95
[2023-07-08 12:55] VITALS: BP 137/82
== END 2023-07-08 13:08 | disposition home or self-care (01) ==
LOC: EN 09:04 → AC 09:04
PROVIDERS: PCP Student in an Organized Health Care Education/Training Program; Referring Provider Student in an Organized Health Care Education/Training Program; Visit Provider Surgery
PROC: 0DJD8ZZ Inspection of Lower Intestinal Tract, Via Natural or Artificial Opening Endoscopic (ICD-10-PCS; CPT 45378; principal; 2023-07-08 10:10)
DX: Z12.11 Encounter for screening for malignant neoplasm of colon (principal); K64.1 Second degree hemorrhoids; D12.3 Benign neoplasm of transverse colon; K21.00 Gastro-esophageal reflux disease with esophagitis, without bleeding; K31.7 Polyp of stomach and duodenum; K29.50 Unspecified chronic gastritis without bleeding; K44.9 Diaphragmatic hernia without obstruction or gangrene; I10 Essential (primary) hypertension; E78.5 Hyperlipidemia, unspecified; Z79.899 Other long term (current) drug therapy; Z86.010 Personal history of colon polyps; Z86.16 Personal history of COVID-19
CPT/HCPCS: 45385; 43239; 88305; 88313; 88342; J7120; J2405

== ENCOUNTER 2024-01-22 11:20 | Emergency (ER) | payer MEDICARE, SELFPAY ==
[2024-01-22 11:20] VITALS: BP 150/87; PULSE 63; RESP 19; TEMP 35.9; O2SAT 100; BMI 23.3
--- NOTE | 2024-01-22 11:35 | VDLE_ITS ---
Reason For Study: RLE Swelling RIGHT LEFT GSV is normal. CFV is compressible, spontaneous, phasic, CFV is compressible, spontaneous, phasic, competent, and demonstrates normal competent and demonstrates normal augmentation. augmentation. FV is compressible, spontaneous, phasic, competent and demonstrates normal augmentation. POP V is compressible, phasic, and INCOMPETENT for greater than 1.0 second. T/P Trunk is compressible. PTV is compressible. RT PerV is compressible. Procedure This is a venous duplex using B-mode, color flow and spectral Doppler. Exam performed portable in ED. The exam was diagnostic. A preliminary report was called and/or faxed to ED hog pusher. VL/Venous Duplex US, Unilateral Interpretation Summary Deep veins of the right lower extremity are patent and compressible segmentally . There is no evidence of right lower extremity deep vein thrombosis. Valvular incompetence i s noted in the right popliteal vein. The right common femoral vein and femoral vein are competent. T he right great saphenous vein appears patent and compressible segmentally. The left common fem oral vein is patent and compressible . Ordering Physician: Matthew Brewer Referring Physician: Jarrod Barker Performed By: Perez Vyas RVT
--- NOTE | 2024-01-22 12:12 | EX.ED.DYSGE1 ---
HPI History of Present Illness Chief Complaint: Lower Extremity Injury Narrative Narrative: Chief complaint and HPI: Right lower extremity swelling. 63-year-old male presents for evaluation of intermittent swelling of the right lower calf. Patient has noticed it for the past 2 days. He states yesterday he developed some mild aching. States it feels similar to his previous DVT that he had in the right lower extremity. He developed that 1 secondary to surgery and is currently not on any anticoagulation. The DVT was 2 years ago. He denies any fever, chills, shortness of breath, chest pain, injury, long car rides. Review of systems: See HPI Medications: As listed on the chart Allergies: As listed on the chart PFSH: Per chart Vital signs: As listed on the chart. Reviewed. Physical exam: Gen: A&O x3, NAD Head: Normocephalic, atraumatic Eyes: No sclera icterus, conjunctiva clear ENT: Moist mucous membranes Neck: Trachea midline, No JVD CV: RRR, no murmurs, no peripheral edema Resp: Lungs CTA BL, no w/r/c Musc: Full ROM, no deformity, negative Homans' sign, right lower extremity non-swollen, no signs of infection, nontender to palpation Skin: Warm, dry Neuro: Alert, oriented, grossly intact, sensation intact Psych: Cooperative, appropriate mood and affect [facility] Medical History (Updated 01/22/24 @ 14:[address] Matthew Brewer, ) Insect bite Cellulitis of right upper arm Wears glasses DVT (deep venous thrombosis) Non-smoker History of echocardiogram Hypertension Melanoma GERD (gastroesophageal reflux disease) Pneumonia Acute respiratory failure Hyperlipidemia Ventricular bigeminy Acute electrocardiogram changes Shock Home Medications ?Medication ?Instructions ?Recorded ?Last Taken ?Type atenolol 50 mg tablet 50 mg PO QHS 03/18/07/07/23 History doxycycline monohydrate 100 mg 100 mg PO BID #20 caps 10/04/23 Unknown Rx capsule omeprazole 20 mg capsule,delayed 20 mg PO QDAY 10/04/23 Unknown History release prednisone 20 mg tablet 20 mg PO DAILY #5 tabs 10/04/23 Unknown Rx Allergy/AdvReac Type Severity Reaction Status Date / Time famotidine Allergy Intermediate Other Verified 01/22/24 11:22 sucralfate (From Carafate) Allergy Intermediate Other Verified 01/22/24 11:22 codeine AdvReac Vomiting Verified 01/22/24 11:22 epinephrine AdvReac Other Verified 01/22/24 11:22 Family History Mother Hypertension Cancer lung Father Cancer mantle cell lymphoma Surgical History History of cardiac catheterization History of melanoma excision History of esophagogastroduodenoscopy (EGD) History of nasal septoplasty Social History Smoking Status: Never smoker alcohol intake: never substance use type: does not use EXAM Physical Exam Const Vital Signs: 01/22/24 11:20 01/22/24 14:18 Temperature 96.7 F L 96.7 F L Temperature Source Temporal Pulse Rate 63 63 Respiratory Rate 19 H 18 Blood Pressure 150/87 H 150/87 H Blood Pressure Mean 108 108 Pulse Ox 100 100 Oxygen Delivery Method Room Air MDM MDM MDM Narrative Medical decision making narrative: 63-year-old male presents for evaluation of intermittent swelling of the right lower calf. Swelling has been intermittent for the past 2 days. History of DVT. Not on anticoagulation. Differential diagnosis includes but is not limited to mild peripheral edema, venous insufficiency, DVT. Ultrasound of the right lower extremity ordered to assess for DVT. Venous duplex ultrasound negative for DVT. At this point in time no clear etiology for patient's intermittent swelling in his right lower extremity. Patient currently not swollen. Patient was educated on elevation at night and when at rest. Told to follow-up with PCP. Patient and confirmed understand the plan. Patient stable to discharge home. Impression: 1. Intermittent right lower extremity swelling 2. History of previous DVT not on anticoagulation Discharge Plan Triage Chief Complaint: Lower Extremity Injury ED Provider: Matthew Brewer Dx/Rx/DC Orders Clinical Impression: Localized swelling of right lower extremity Instructions: ED Peripheral Edema, Unilateral Prescriptions: No Action omeprazole 20 mg capsule,delayed release(DR/EC) 20 mg PO QDAY prednisone 20 mg tablet 20 mg PO DAILY Qty: 5 0RF doxycycline monohydrate 100 mg capsule 100 mg PO BID Qty: 20 0RF atenolol 50 MG tablet 50 mg PO QHS Primary Care Provider: Jarrod Sifuentes Referrals: Jarrod Sifuentes DO [Primary Care Provider] - 3-5 Days Activity Restrictions/Additional Instructions: Follow-up with your primary care physician Print Language: Chinese Disposition Disposition: Home, Self Care Discharge Date/Time: 01/22/24 14:23
[2024-01-22 14:18] VITALS: BP 150/87; PULSE 63; RESP 18; TEMP 35.9; O2SAT 100
== END 2024-01-22 14:23 | disposition home or self-care (01) ==
PROVIDERS: Emergency Provider Surgery; PCP Student in an Organized Health Care Education/Training Program; Visit Provider Surgery
DX: M79.89 Other specified soft tissue disorders (principal); I10 Essential (primary) hypertension; Z79.899 Other long term (current) drug therapy; Z86.718 Personal history of other venous thrombosis and embolism
CPT/HCPCS: 93971; 99282; A4216

== ENCOUNTER 2024-02-29 09:41 | Emergency (ER) | payer MEDICARE, SELFPAY ==
[2024-02-29 09:42] VITALS: BP 174/75; PULSE 78; RESP 19; TEMP 35.6; O2SAT 99; BMI 24.1
[2024-02-29 09:57] VITALS: BP 174/75; PULSE 78; RESP 16; TEMP 35.6; O2SAT 99
--- NOTE | 2024-02-29 10:39 | EDS_ITS ---
HPI History of Present Illness Chief Complaint: Abscess Informant: patient Narrative Narrative: 63-year-old male presenting to the emergency room with a chief complaint of wrist abscess. Patient states he saw urgent care on Tuesday they swabbed the skin and placed him on doxycycline. The patient states he has had 2 prior staph infections this year. He has not required incision and drainage. He denies any fever. [facility] Medical History Insect bite Cellulitis of right upper arm Wears glasses DVT (deep venous thrombosis) Non-smoker History of echocardiogram Hypertension Melanoma GERD (gastroesophageal reflux disease) Pneumonia Acute respiratory failure Hyperlipidemia Ventricular bigeminy Acute electrocardiogram changes Shock Home Medications ?Medication ?Instructions ?Recorded ?Last Taken ?Type atenolol 50 mg tablet 50 mg PO QHS 03/18/07/07/23 History doxycycline monohydrate 100 mg 100 mg PO BID #20 caps 10/04/23 Unknown Rx capsule omeprazole 20 mg capsule,delayed 20 mg PO QDAY 10/04/23 Unknown History release prednisone 20 mg tablet 20 mg PO DAILY #5 tabs 10/04/23 Unknown Rx cephalexin 500 mg capsule 500 mg PO Q6 #28 CAPSULES 02/29/24 Unknown Rx Allergy/AdvReac Type Severity Reaction Status Date / Time famotidine Allergy Intermediate Other Verified 01/22/24 11:22 sucralfate (From Carafate) Allergy Intermediate Other Verified 01/22/24 11:22 codeine AdvReac Vomiting Verified 01/22/24 11:22 epinephrine AdvReac Other Verified 01/22/24 11:22 Family History Mother Hypertension Cancer lung Father Cancer mantle cell lymphoma Surgical History History of cardiac catheterization History of melanoma excision History of esophagogastroduodenoscopy (EGD) History of nasal septoplasty Social History Smoking Status: Never smoker alcohol intake: never substance use type: does not use ROS ROS ED Constitutional Constitutional ED: Denies chills, fever(s) or weight loss Eyes Eyes: Denies change in vision or diplopia ENT ENT ED: Denies ear pain, rhinorrhea or sore throat Cardiovascular Cardiovascular: Denies chest pain, orthopnea, palpitations or racing heartbeat Respiratory/Chest Respiratory/Chest: Denies cough, dyspnea or orthopnea Gastrointestinal Gastrointestinal: Denies abdominal pain, diarrhea, nausea or vomiting Genitourinary Genitourinary ED: Denies dysuria, hematuria or urinary frequency Musculoskeletal Musculoskeletal: Denies arthralgias or myalgias Integumentary Reports abscess; Denies rash Neurologic Neurologic: Denies headache(s) or weakness Psychiatric Psychiatric: Denies anxiety, depression, suicidal ideation or suicidal thoughts Endocrine Endocrinology: Denies polydipsia, polyphagia or polyuria Allergic/Immunologic Allergic/Immunologic ED: Denies mouth swelling, tongue swelling or urticaria EXAM Physical Exam Const Vital Signs: 02/29/24 09:42 02/29/24 09:57 Temperature 96.0 F L 96.0 F L Temperature Source Temporal Temporal Pulse Rate 78 78 Respiratory Rate 19 H 16 Blood Pressure 174/75 H 174/75 H Blood Pressure Mean 108 108 Pulse Ox 99 99 Oxygen Delivery Method Room Air Room Air Positive well nourished and well developed General Appearance ED: well developed and NAD HEENT Reports normocephalic, head/scalp atraumatic and moist mucous membranes Eyes PERRL and EOMs intact bilaterally Neck no lymphadenopathy, supple and no JVD Resp normal respiratory effort and clear to auscultation bilaterally Cardio regular rate, regular rhythm and no murmurs GI normal to inspection, nondistended, normoactive bowel sounds and non-tender Palpation: soft Back/Spine no CVA tenderness and normal ROM Extremity Extremity Narrative: There is a 2 cm circular area of erythema with what appears to be more of a carbuncle with localized swelling increased warmth and redness. There are multiple areas that appear pustular within this larger area. There is a degree of fluctuance noted. No lymphangitic streaking. General Extremety ED: Negative for edema General Extremity: Negative for edema Neuro oriented x3 and CN's II-XII intact bilaterally Sensorium / Orientation: alert Motor Exam: strength 5/5 throughout Psych mental status grossly normal Mood & Affect: Negative for depressed or tearful Skin no rashes or lesions noted and no wounds MDM MDM MDM Narrative Medical decision making narrative: Differential diagnosis includes but not limited to abscess infected sebaceous cyst carbuncle. Wound was washed with Betadine locally anesthetized using 1% lidocaine. A cruciate incision was made over the fluctuance. Blood and pus was removed. A culture was obtained. Wound was packed with quarter inch iodoform packing. Local wound care discussed with patient. He is already on doxycycline I would add in some Keflex until we get the culture and sensitivities back. Would recommend removal of the packing in 72 hours returning if any concerns or worsening patient is comfortable with this plan History & Record Review Discussion w/independent historian: Patient Discharge Plan Triage Chief Complaint: Abscess ED Provider: Perfecto Morejon Dx/Rx/DC Orders Clinical Impression: Abscess, wrist Instructions: ED Abscess Incision And Drainage Prescriptions: New cephalexin 500 mg capsule 500 mg PO Q6 Qty: 28 0RF No Action omeprazole 20 mg capsule,delayed release(DR/EC) 20 mg PO QDAY prednisone 20 mg tablet 20 mg PO DAILY Qty: 5 0RF doxycycline monohydrate 100 mg capsule 100 mg PO BID Qty: 20 0RF atenolol 50 MG tablet 50 mg PO QHS Primary Care Provider: Jarrod Sifuentes Referrals: Jarrod Sifuentes DO [Primary Care Provider] - As Needed Activity Restrictions/Additional Instructions: Today we performed an incision and drainage on the abscess of the right wrist. Cultures were taken and generally take between 24 and 48 hours to return. We are going to keep you on doxycycline but add in cephalexin to your antibiotics. Warm compresses to the area. Would recommend removing of the packing on Tuesday morning while in the shower. Please return to emergency if you have any concerns feel that you are worsening. Print Language: Bulgarian Disposition Disposition: Home, Self Care
[2024-02-29 10:44] VITALS: BP 127/89; PULSE 79; RESP 18; TEMP 36.2
[2024-02-29] MEDS: Lidocaine 1% (20 ml mdv) 20 ML Vial INFILT (10:51)
== END 2024-02-29 10:56 | disposition home or self-care (01) ==
PROVIDERS: Emergency Provider Emergency Medicine; PCP Student in an Organized Health Care Education/Training Program; Visit Provider Emergency Medicine
DX: L02.413 Cutaneous abscess of right upper limb (principal); I10 Essential (primary) hypertension; Z79.899 Other long term (current) drug therapy
CPT/HCPCS: 10060; 87070; 87077; 87186; 87205; 99282

== ENCOUNTER 2024-03-23 12:48 | Day surgery (SDC) | payer MEDICARE, SELFPAY ==
[2024-03-23] VITALS (8 sets, daily range): BP systolic 105–131; BP diastolic 64–76; PULSE 56–66; RESP 16; TEMP 36.2–36.9; O2SAT 96–100; BMI 23.3
--- NOTE | 2024-03-23 13:02 | PRE.ANES_ITS ---
ASA Classification* ASA Classification ASA Classification: 2 Assessment & Plan Anesthesia* Anesthesia Assessment Anesthesia Assessment: Discussed sedation and/or anesthesia options, risks, benefits, and alternatives with patient/parents/legal guardian/POA. Questions invited. The patient/parents/legal guardian/POA seems to understand and agrees to proceed with anesthesia plan. Reviewed the physical assessment, medical history, allergy history and patient home medications list prior to surgery/procedure/anesthetic and documented any changes. Performed airway and anesthesia risk assessments. Anesthesia Type Anesthesia Type: MAC Anesthesia Focused Assessment* Airway Assessment Mouth opens: >3 cm Mallampati Score: II Focused Labs Anesthesia Preop lab: CBC WBC 10.0 K/mm3 (4.4-11.0) 10/31/15 04:05 RBC 4.51 M/mm3 (4.6-6.2) L 10/31/15 04:05 Hgb 11.4 g/dl (13.0-16.5) L 10/31/15 06:17 Hct 35.5 % (40-54) L 10/31/15 06:17 Plt Count 169 K/mm3 (150-450) 10/31/15 04:05 CHEMISTRY Potassium 3.6 mmol/L (3.5-5.1) 10/31/15 04:05 Sodium 140 mmol/L (136-145) 10/31/15 04:05 BUN 14 mg/dL (7-18) 10/31/15 04:05 Creatinine 1.00 mg/dL (0.70-1.30) 10/31/15 04:05 Glucose 95 mg/dL (70-110) 10/31/15 04:05 COAG PT 12.8 SECONDS (11.7-14.9) 10/30/15 13:10 Pre-Assessment Diagnosis/Proposed Procedure Planned Operative Procedure(s): (R) RIGHT WRIST FOREIGN BODY REMOVAL, IRRIGATION AND DEBRIDEMENT Anesthesia History Anesthesia History - database software technician: Anesthesia History - database software technician Hx Hospitalization No 03/22/24 08:34 Any Problems With Anesthesia No 03/22/24 08:34 Cholinesterase deficiency No 03/22/24 08:34 You/Your Family Experience No 03/22/24 08:34 fever (hyperthermia) with Relationship Recent Exposure to Contagious No 07/08/23 09:14 Disease Does patient have nerve No 03/22/24 08:34 stimulator Patient instructed to have device shut off --Does patient have Pacemaker or ICD? When Was Last Pacemaker Check QUESTION #4 FULL TEXT: You/Your Family Experience fever (hyperthermia) with Anesthesia Last Oral Intake Last Oral intake: Last Oral Intake NPO since Meds taken in AM with sips of water? Meds patient instructed to take am of surgery PONV PONV - database software technician: PONV - database software technician Female No 03/22/24 08:34 HX of Motion Sickness Yes 03/22/24 08:34 HX of N/V After Surgery No 03/22/24 08:34 Non-Smoker Yes 03/22/24 08:34 Duration of Surgery greater No 03/22/24 08:34 than 60 minutes Number of Risk Factors 2 03/22/24 08:34 PONV Score Moderate Risk 03/22/24 08:34 Height & Weight Height & Weight: Anesthesia: Height & Weight Height 5 ft 11 in 02/29/24 09:42 Respiratory Assessment Respiratory Assessment - database software technician: Respiratory Tract Infection Hx - database software technician Hx Respiratory Tract Infection No 03/22/24 08:34 STOP Sleep Apnea STOP Sleep Apnea - database software technician: STOP Sleep Apnea - database software technician Hx Hypertension No 03/22/24 08:34 Hx Sleep Apnea No 03/22/24 08:34 CPAP No 07/08/23 12:12 BIPAP No 06/22/18 14:42 Do you snore loudly (louder No 03/22/24 08:34 than talking or can be heard Do you often feel tired/ No 03/22/24 08:34 fatigued/ sleepy during daytime? Has anyone observed you stop No 03/22/24 08:34 breathing during sleep? STOP Results Negative 03/22/24 08:34 QUESTION #5 FULL TEXT : Do you snore loudly (louder than talking or can be heard through closed doors)? 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 Specify any problems Hx of Preganancy in last 3 N/A 03/22/24 08:34 Months Nurse Filling Out Transfusion NBUCHER 03/22/24 08:34 & Questions: Date: 03/22/24 03/22/24 08:34 Time: 08:35 03/22/24 08:34 Patient unable to answer at this time (ie. confused, unrespo /Reproduction History /Reproductive History - database software technician: /Reproductive Hx- database software technician Hx Now No 03/22/24 08:34 Gestational Age (in weeks): EDC: Hx Hx Para Hx Section SAB No 03/22/24 08:34 Active Medications Active Medications: Current Medications Generic Name Dose Route Start Last Admin Trade Name Freq PRN Reason Stop Dose Admin Cefazolin Sodium 2 gm/ N/A 20 mls @ 400 mls/hr 03/23/24 14:15 IV 03/23/24 14:17 PREOP ONE [facility] Medical History MRSA (methicillin resistant staph aureus) culture positive Insect bite Cellulitis of right upper arm Wears glasses DVT (deep venous thrombosis) Non-smoker History of echocardiogram Hypertension Melanoma GERD (gastroesophageal reflux disease) Pneumonia Acute respiratory failure Hyperlipidemia Ventricular bigeminy Acute electrocardiogram changes Shock Home Medications ?Medication ?Instructions ?Recorded ?Last Taken ?Type atenolol 50 mg tablet 50 mg PO DAILY 03/18/14 07/07/23 History omeprazole 20 mg capsule,delayed 20 mg PO QDAY 10/04/23 Unknown History release cefdinir 300 mg capsule 300 mg PO BID 03/22/24 Unknown History sulfamethoxazole 800 1 tab PO BID 03/22/24 Unknown History mg-trimethoprim 160 mg tablet Allergy/AdvReac Type Severity Reaction Status Date / Time famotidine Allergy Intermediate Other Verified 03/23/24 13:06 sucralfate (From Carafate) Allergy Intermediate Other Verified 03/23/24 13:06 codeine AdvReac Vomiting Verified 03/23/24 13:06 epinephrine AdvReac Other Verified 03/23/24 13:06 Family History Mother Hypertension Cancer lung Father Cancer mantle cell lymphoma Surgical History History of cardiac catheterization History of melanoma excision History of esophagogastroduodenoscopy (EGD) History of nasal septoplasty Social History Smoking Status: Never smoker alcohol intake: never substance use type: does not use Review of Systems (Anesthesia) ROS Narrative System reviewed and no additional complaints, except as documented.
--- NOTE | 2024-03-23 14:41 | RAD_ITS ---
EXAM: XR RIGHT WRIST, 2 VIEWS CLINICAL INDICATION: RT WRIST FOREIGN BODY REMOVAL TECHNIQUE: Frontal and lateral views of the right wrist. COMPARISON: No relevant prior studies available. FINDINGS: BONES/JOINTS: Intraoperative images of the right wrist shows radiodense foreign body overlying the distal radius on the initial images is not present on the final images. No acute fracture. No subluxation. Normal alignment. Preservation of the joint space. No sclerotic or destructive changes observed. SOFT TISSUES: See above. RAD/Wrist 2 Views IMPRESSION: Removal of foreign body overlying the distal radius. Electronically Signed: Srikanth Tyler MD at 0:10 EST ,
[2024-03-23] MEDS: Cefazolin 2 GM in Syringe IV (15:05)
[2024-03-23] MEDS: Lidocaine 1% /Epi 1:100 (20ml) 20 ML Vial (15:10)
--- NOTE | 2024-03-23 15:40 | PCM.POST.ANE ---
Anesthesia: Postop Eval I Current Vital Signs Temperature: 97.8 F Pulse Rate: 64 Blood Pressure: 113/70 Respiratory Rate: 16 Pulse Ox: 98 Oxygen Delivery Method: Room Air Assessment Airway patent: Yes Spontaneous unlabored respirations: Yes Mental status: Awake and Calm nausea: No Vomiting: No Anesthesia Complication: No Fluid Hydration Crystalloid volume administer (ml): 30 Total IV fluid infused: 30 Progress Note Anesthesia document: Postop Eval 1 completed: Yes
[2024-03-23] MEDS: Ketorolac 15 MG/ML Vial IV (15:41)
--- NOTE | 2024-03-23 15:41 | OP.PCM_ITS ---
Operative Report (Standard) Operative Information Date of Procedure: 03/23/24 Pre-Operative Diagnosis: 1. Right wrist subcutaneous abscess 2. Right wrist retained metallic foreign body Post-Operative Diagnosis: 1. Right wrist subcutaneous abscess 2. Right wrist retained metallic foreign body Surgery/Procedure Performed: 1. Right wrist abscess incision and drainage 2. 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 Type of Anesthesia: Local MAC RN Documented Start/Stop Times: Operation Date: 03/23/24 14:15 Case Time Into Pre-Op 03/23/24 13:01 Anesthesia Start 03/23/24 15:00 Into Room 03/23/24 15:00 Out of Pre-Op 03/23/24 15:00 Procedure Start 03/23/24 15:13 Procedure End 03/23/24 15:32 Into Recovery 03/23/24 15:38 Procedure Start Time: 15:13 Procedure Stop Time: 15:32 Select all DRAINS/GRAFTS/IMPLANTS that apply: None Estimated Blood Loss: 5 cc Fluids Replaced: Per anesthesia record Specimen collected: No Description of surgery: Patient is identified in the preoperative holding area by name, medical record number, and date of . The operative extremity was marked. All questions were answered to the patient satisfaction. At time of his procedure, patient was brought to the operative suite and positioned supine on a standard operating table. MAC anesthesia was induced and achieved. All bony prominences were well-padded. Well-padded pneumatic tourniquet was applied to the right forearm. Prior to prepping, tumescent field block was administered with 15 cc total 1% lidocaine with epinephrine. We prepped and draped the right hand and wrist in a normal, sterile orthopedic fashion. We performed a timeout confirming the side, site, and operation to be performed. No concerns were voiced and we elected to proceed with surgery. 2 g Ancef was administered IV prior to returning inflation by anesthesia staff. I then exsanguinated the right hand and wrist with an Esmarch bandage. Tourniquet inflated to 250 mmHg which remained up for approximately 10 minutes. Esmarch was removed. C arm was brought in to identify the metallic foreign body. Abscess was quite small and noted over the radial styloid, doubt foreign body was between the interval of the radial artery and flexor carpi radialis tendon. 1 cm longitudinal incision was then made just radial to the flexor carpi radialis tendon proximal to the wrist crease. Blunt dissection was carried in the subcutaneous plane. Metallic foreign body was identified measuring approximately 5 mm in maximal diameter. Orthogonal fluoroscopy confirmed complete excision of the metallic foreign body. There were no signs of infection around the metallic foreign body. I then turned my attention of the to the abscess. 1 cm longitudinal incision was made sharply over the radial styloid. Inflammatory tissue was encountered but no gross purulence. I was unable to express any purulent fluid from the area. Debridement of the fascia and subcutaneous tissue was performed with a rasp. I then irrigated 1 L saline through the wound. Tourniquet was deflated. Hemostasis was achieved with bipolar cautery. The more volar incision, I closed watertight with interrupted horizontal mattress 3-0 nylon suture. The incision overlying the infection was closed loosely with simple 3-0 nylon suture. Bulky sterile compression dressing was applied. Patient was awakened from anesthesia. He tolerated the procedure well without apparent complication. He was transferred to his gurney and subsequently PACU in stable condition. Postoperative plan: With minimal evidence of continued infection, I recommended 5 more days of Bactrim DS which was prescribed today. Elevation of the right hand for the next few days. Ice to the operative site. Prescription for [place] provided. Weightbearing less than 3 pounds the operative extremity while the stitches are in. Will plan to see the patient in approximately 10 days for suture removal. He was encouraged to call the office sooner if any signs of infection develop after completing antibiotics. Surgical Findings: Metallic foreign body noted well volar to the area of concern. No purulent fluid encountered at the area of prior abscess. Complications Complications: No Admit VTE Documentation VTE Present on Admission: No VTE Mechan Device Prophylaxis: SCD's VTE Pharm Prophylaxis ordered?: No Reason prophylaxis not ordered: Treatment Not Indicated
--- NOTE | 2024-03-23 16:33 | POSTOPAN2_ITS ---
Anesthesia Postop Eval I Sum Postop Eval Completion status Anesthesia document: Postop Eval 1 completed: Yes Anesthesia Postop Eval I Summary Anesthesia Postop Eval I Summary: Anesthesia Postop Eval I: Assessment Summary Airway patent Yes 03/23/24 15:41 RIDING [email or web address] Spontaneous unlabored Yes 03/23/24 15:41 RIDING [email or web address] respirations Mental status Awake,Calm 03/23/24 15:41 RIDING [email or web address] nausea No 03/23/24 15:41 RIDING [email or web address] Vomiting No 03/23/24 15:41 RIDING [email or web address].[email or web address] Anesthesia Postop Eval I: Fluid Summary Crystalloid volume administer 30 03/23/24 15:41 RIDING [email or web address] (ml) Colloids volume administered ( ml) Blood Product volume administered (ml) Total IV fluid infused 30 03/23/24 15:41 RIDING [email or web address] Anesthesia Postop Eval I: Summary Notes Anesthesia Complication No 03/23/24 15:41 RIDING [email or web address].[email or web address] Anesthesia Complication Comment: Post-operative progress note Anesthesia: Postop Eval II Evaluation Mental status: Awake and Calm Pain Level: 1 nausea: No Vomiting: No Complications Anesthesia Complication: No
--- NOTE | 2024-03-23 16:33 | PCM.POSTANE2 ---
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 [email or web address] Spontaneous unlabored Yes 03/23/24 15:41 CREWMAN ARMOURED PERSONNEL CARRIER [email or web address] respirations Mental status Awake,Calm 03/23/24 15:41 CREWMAN ARMOURED PERSON[employer]EL [employer]RIER [email or web address] nausea No 03/23/24 15:41 CREWMAN ARMOURED PERSONNEL CARRIER [email or web address] Vomiting No 03/23/24 15:41 CREWMAN ARMOURED PERSONNEL CARRIER [email or web address] Anesthesia Postop Eval I: Fluid Summary Crystalloid volume administer 30 03/23/24 15:41 CREWMAN ARMOURED PERSONNEL CARRIER [email or web address] (ml) Colloids volume administered ( ml) Blood Product volume administered (ml) Total IV fluid infused 30 03/23/24 15:41 CREWMAN ARMOURED PERSONNEL CARRIER [email or web address] Anesthesia Postop Eval I: Summary Notes Anesthesia Complication No 03/23/24 15:41 CREWMAN ARMOURED PERSONNEL [employer]RIER [email or web address] Anesthesia Complication Comment: Post-operative progress note Anesthesia: Postop Eval II Evaluation Mental status: Awake and Calm Pain Level: 1 nausea: No Vomiting: No Complications Anesthesia Complication: No
== END 2024-03-23 17:06 | disposition home or self-care (01) ==
LOC: SDC 12:49 → AC 12:51
PROVIDERS: PCP Student in an Organized Health Care Education/Training Program; Referring Provider Student in an Organized Health Care Education/Training Program; Visit Provider Student in an Organized Health Care Education/Training Program
PROC: (CPT 10120; principal; 2024-03-23 14:00)
DX: S60.851A Superficial foreign body of right wrist, initial encounter (principal); X58.XXXA Exposure to other specified factors, initial encounter; L02.413 Cutaneous abscess of right upper limb; B95.62 Methicillin resistant Staphylococcus aureus infection as the cause of diseases classified elsewhere; Z18.10 Retained metal fragments, unspecified; E66.3 Overweight; Z68.25 Body mass index [BMI] 25.0-25.9, adult; Z71.3 Dietary counseling and surveillance; Z79.2 Long term (current) use of antibiotics; Z86.16 Personal history of COVID-19
CPT/HCPCS: 10120; 11043; 00400; 73100; 76000; A4216; J2405